=== PATIENT | female | born 1990 | race Two or more races ===

== ENCOUNTER 2019-09-08 00:53 | Emergency (ER) | payer MEDICAID, OTHER ==
[~2019-09-08] VITALS: Ht 152.4 cm; Wt 59.9 kg
[2019-09-08] MEDS ORDERED: SUMATRIPTAN SUCCINATE 6 MG/0.5 ML VIAL SQ ONE ×2 (02:40→03:00)
[2019-09-08] MEDS ORDERED: METOCLOPRAMIDE HCL 10 MG/2 ML VIAL ONE (02:41)
--- NOTE | 2019-09-08 02:55 | NUR ---
BIBS W/ FRIEND FROM HOME TO ER BED 1. AAOX4. NO RESP DISTRESS NOTED. AMBULATORY. C/O FRONTAL HEADACHE X 3 DAYS. PER PT, PAIN IS RATED AT 8/10 INTERMITTENT, THROBBING AND PRESSURE. LAST MEDICATION WAS TAKEN YESTERDAY. MD WAS AT BEDSIDE. ORDERS, RECEIVED NOTED CARRIED OUT. IV LINE OBTAINED ON THE RT AC 20G. MEDICATED ORDERED.
[2019-09-08] MEDS ORDERED: METOCLOPRAMIDE HCL 10 MG/2 ML VIAL IV ONE (03:00)
[2019-09-08] MEDS ORDERED: IV NS 0.9% 1,000 ML BAG IV ONE (03:00)
--- NOTE | 2019-09-08 03:45 | NUR ---
Patient discharged to home in stable condition. Written and verbal after care instructions given. Patient verbalizes understanding of instruction.IV removed. Catheter intact and site benign. Pressure and 4x4 applied to site. No bleeding noted. Pt ambulatory with a steady gait
[2019-09-08 03:49] VITALS: BP 118/78
== END 2019-09-08 03:49 | disposition home or self-care (01) ==
LOC: ER 00:58
DX: R51 Headache (principal)
CPT/HCPCS: 96372; 96374; 99283; J2765; J3030; J7030